=== PATIENT | female | born 1955 | race Hispanic/Latino ===

== ENCOUNTER 2016-09-27 15:31 | Emergency (ER) | payer MEDICAID, OTHER ==
[2016-09-27 15:32] VITALS: BMI 19.6
[2016-09-27 16:02] VITALS: RESP 16; O2SAT 97
[2016-09-27] MEDS ORDERED: Belladonna-Phenobarbital PO STA (16:46)
[2016-09-27] MEDS ORDERED: Aluminum Hydroxide/Magnesium Hydroxide Susp (30 mL) PO STA (16:46)
[2016-09-27] MEDS ORDERED: Lidocaine 2% Viscous 100 ml PO STA (16:46)
[2016-09-27] MEDS ORDERED: Sodium Chloride 0.9% 500 ML IV ONE ×2 (16:46→17:03)
--- NOTE | 2016-09-27 16:48 | C.PDOC ---
History Of Present Illness 61 y/o female with PMHx cervical cancer Dx 2013, alcoholism presents to the ED with complains of intermittent lower abdominal pain radiating to lower back the past couple days; 10/20. Pt also reports dizziness and constipation. Pt used to see Dr Thompson but states she moved locations and is now too far to travel to. Not currently on any medications. Pt admits to drinking more than usual. Denies fever, chills, vomiting, headache, diarrhea, chest pain, SOB or any other complaints. Time Seen by Provider: 09/27/16 16:16 Chief Complaint (Nursing): Back Pain History Per: Patient History/Exam Limitations: no limitations Onset/Duration Of Symptoms: Days, Intermittent Episodes Current Symptoms Are (Timing): Still Present Quality Of Discomfort: "Pain" Severity: Moderate Pain Scale Rating Of: 4 Associated Symptoms: None Recent travel outside of the [place]: No Past Medical History Reviewed: Historical Data, Nursing Documentation, Vital Signs Vital Signs: Last Vital Signs Temp 97.5 F L 09/27/16 16:00 Pulse 86 09/27/16 16:00 Resp 16 09/27/16 16:00 BP 121/71 09/27/16 16:00 Pulse Ox 97 09/27/16 16:54 - Medical History PMH: Anemia, Arthritis, Asthma, Bipolar Disorder, Depression, Diabetes (type II) , Gastritis, GERD, Hepatitis (C), HTN, Hypercholesterolemia, Malignancy ( Cervical/Ovarian CA), Osteoporosis - [facility] Procedures CERVICAL BIOPSY NEC (08/11/14) D & C NEC (08/11/14) LAPAROSCOPY (08/11/14) PACKED CELL TRANSFUSION (08/11/14) Family History: States: Unknown Family Hx, Diabetes, Hypertension - Social History Hx Tobacco Use: Yes Hx Alcohol Use: Yes (daily use of beer and rum) Hx Substance Use: Yes (cocaine) - Immunization History Hx Tetanus Toxoid Vaccination: No Hx Influenza Vaccination: No Hx Pneumococcal Vaccination: No Review Of Systems Except As Marked, All Systems Reviewed And Found Negative. Constitutional: Negative for: Fever, Chills Cardiovascular: Negative for: Chest Pain Respiratory: Negative for: Shortness of Breath Gastrointestinal: Positive for: Abdominal Pain (lower), Constipation. Negative for: Vomiting, Diarrhea Musculoskeletal: Positive for: Back Pain (low) Neurological: Negative for: Headache Physical Exam - Physical Exam Appears: Non-toxic, No Acute Distress, Other (alcohol on breath; conversational) Skin: Warm, Dry, No Rash Head: Atraumatic, Normacephalic Nose: Normal Neck: Normal ROM, Supple Chest: Symmetrical Cardiovascular: Rhythm Regular Respiratory: Normal Breath Sounds, No Rales, No Rhonchi, No Wheezing Gastrointestinal/Abdominal: Soft, No Tenderness Back: Normal Inspection, No CVA Tenderness, No Vertebral Tenderness, No Paraspinal Tenderness Extremity: Normal ROM Extremity: Bilateral: Atraumatic Neurological/Psych: Oriented x3 ED Course And Treatment - Laboratory Results Result Diagrams: 09/27/16 17:00 09/27/16 17:00 O2 Sat by Pulse Oximetry: 97 (on room air) Pulse Ox Interpretation: Normal Medical Decision Making Medical Decision Making: Plan: labs, maalox, , UA, XR abd, IV fluids Patient feeling much better, requesting immediate discharge . Wants to go home and eat. Patient's abnormal labs discussed with patient. She will follow in clinic. Disposition Counseled Patient/Family Regarding: Studies Performed, Diagnosis - Disposition Referrals: [facility] at [facility] [Outside] Disposition: HOSPITALIZED Disposition Time: 18:28 Condition: STABLE Additional Instructions: Follow up in clinic and with Dr. Thompson. Return to the ED with any further concerns. Instructions: Abdominal Pain (ED), High Fiber Diet (ED), Constipation (ED) Forms: General Discharge Instructions - POA Present On Arrival: None - Clinical Impression Clinical Impression: Abdominal pain in female, Acute constipation, Elevated lipase, Uterine cancer - Scribe Statement The provider has reviewed the documentation as recorded by the Petey Huggins Provider Attestation: All medical record entries made by the Petey were at my direction and personally dictated by me. I have reviewed the chart and agree that the record accurately reflects my personal performance of the history, physical exam, medical decision making, and the department course for this patient. I have also personally directed, reviewed, and agree with the discharge instructions and disposition.
[2016-09-27] MEDS ORDERED: Aluminum Hydroxide/Magnesium Hydroxide Susp (30 mL) ONE (17:03)
[2016-09-27] MEDS ORDERED: Belladonna-Phenobarbital ONE (17:03)
[2016-09-27 17:08] LABS: BASO % 0.9 % (0.0-2.0); EOS # 0.2 K/uL (0.0-0.7); EOS % 3.3 % (0.0-4.0); HEMATOCRIT 26.3 % (34.0-47.0); LYMPH # 1.4 K/uL (1.0-4.3); MEAN CELL VOLUME 92.2 fL (81.0-99.0); MEAN CORPUSCULAR HEMOGLOBIN 30.4 pg (27.0-31.0); MEAN PLATELET VOLUME 6.9 fL (7.2-11.7); MONO # 0.6 K/uL (0.0-0.8); RED CELL DISTRIBUTION WIDTH 17.8 % (11.5-14.5); WHITE BLOOD COUNT 4.6 K/uL (4.8-10.8)
[2016-09-27 17:22] LABS: CHLORIDE 107 mmol/L (98-107); SODIUM 145 mmol/L (132-148)
[2016-09-27 17:22] LABS: RBC URINE 1 /hpf (0-3); URINE BACTERIA RARE (<OCC); URINE BILIRUBIN NEGATIVE (NEGATIVE); URINE BLOOD NEGATIVE (NEGATIVE); URINE COLOR Yellow (YELLOW); URINE GLUCOSE (UA) NORMAL (Normal); URINE KETONE NEGATIVE (NEGATIVE); URINE LEUKOCYTE ESTERASE NEG Leu/uL (Negative); URINE PROTEIN NEGATIVE (NEGATIVE); URINE UROBILINOGEN NORMAL mg/dL (0.2-1.0); WBC URINE 2 /hpf (0-5)
[2016-09-27 17:24] LABS: GFR AFRICAN-AMERICAN > 60
[2016-09-27 17:25] LABS: ALB/GLOB RATIO 1.1 (1.0-2.1); ALKALINE PHOSPHATASE 85 U/L (38-126); ALT/SGPT 54 U/L (9-52); AST/SGOT 150 U/L (14-36); BILIRUBIN,TOTAL 0.3 mg/dL (0.2-1.3); BLOOD UREA NITROGEN 9 mg/dL (7-17); CARBON DIOXIDE 24 mmol/L (22-30); GLUCOSE,RANDOM 93 mg/dL (65-105)
[2016-09-27 17:26] LABS: CALCIUM 8.6 mg/dl (8.6-10.4)
[2016-09-27] MEDS ORDERED: Magnesium Citrate Oral SOL (300 ml) PO ONE (17:44)
[2016-09-27] MEDS ORDERED: Magnesium Citrate Oral SOL (300 ml) ONE (18:54)
[2016-09-27 19:11] VITALS: BP 105/77; PULSE 75; TEMP 98.2
--- NOTE | 2016-09-28 15:31 | RAD ---
HISTORY: abd pain COMPARISON: No prior. FINDINGS: BOWEL: There is moderate amount of stool within the cecum and at ascending as well as proximal transverse colon suggesting mild constipation. No evidence of acute mechanical bowel obstruction. The diaphragmatic surfaces. BONES: Mild multilevel degenerative spondylosis of the lower thoracic and lumbar spine. . OTHER FINDINGS: None. IMPRESSION: Nonobstructive bowel gas pattern. Findings suggest mild constipation.
== END 2016-09-27 19:11 | disposition home or self-care (01) ==
LOC: C.ER 15:31
DX: K59.00 Constipation, unspecified (principal); R10.30 Lower abdominal pain, unspecified; R74.8 Abnormal levels of other serum enzymes; C55 Malignant neoplasm of uterus, part unspecified

== ENCOUNTER 2016-10-31 02:42 | Emergency (ER) | payer MEDICAID ==
[2016-10-31 02:44] VITALS: BMI 19.6
[2016-10-31 03:06] VITALS: RESP 20
--- NOTE | 2016-10-31 03:12 | C.PDOC ---
History Of Present Illness A 61 year old female presents to the emergency room with complaints of vaginal bleeding that started tonight. Patient has a history of Anemia, Ovarian CA, and Cervical CA. Patient reports that she hasn't followed up with anyone. Patient states that she was wiping and saw blood along with 2 clots. Patient says she hasn't had any episodes of bleeding since. Patient notes that she had some vaginal bleeding last week. Patient also notes a lower abdominal cramping sensation and 4 episodes of vomiting earlier this morning. Patient denies any fever, chills, headaches, dizziness, lightheadedness, syncope, any urinary symptoms, or any other complaints. Time Seen by Provider: 10/31/16 02:50 Chief Complaint (Nursing): Female Genitourinary History Per: Patient History/Exam Limitations: no limitations Onset/Duration Of Symptoms: Hrs Current Symptoms Are (Timing): Still Present Severity: Mild Quality Of Discomfort: Cramping, "Pain" Associated Symptoms: Vomiting. denies: Fever, Chills, Urinary Symptoms Alleviating Factors: None Recent travel outside of the [place]: No Abnormal Vaginal Bleeding: Yes Past Medical History Reviewed: Historical Data, Nursing Documentation, Vital Signs Vital Signs: Last Vital Signs Temp 98.0 F 10/31/16 05:52 Pulse 81 10/31/16 05:52 Resp 20 10/31/16 05:52 BP 150/89 10/31/16 05:52 Pulse Ox 99 10/31/16 05:52 - Medical History PMH: Anemia, Arthritis, Asthma, Bipolar Disorder, Depression, Diabetes (type II) , Gastritis, GERD, Hepatitis (C), HTN, Hypercholesterolemia, Malignancy ( Cervical/Ovarian CA), Osteoporosis Denies: HIV, Seizures, Sexually Transmitted Disease - [facility] Procedures CERVICAL BIOPSY NEC (08/11/14) D & C NEC (08/11/14) LAPAROSCOPY (08/11/14) PACKED CELL TRANSFUSION (08/11/14) Family History: States: Unknown Family Hx, Diabetes, Hypertension - Social History Hx Tobacco Use: Yes Hx Alcohol Use: Yes (daily use of beer and rum) Hx Substance Use: Yes (cocaine) - Immunization History Hx Tetanus Toxoid Vaccination: No Hx Influenza Vaccination: No Hx Pneumococcal Vaccination: No Review Of Systems Except As Marked, All Systems Reviewed And Found Negative. Constitutional: Negative for: Fever, Chills Cardiovascular: Negative for: Other (Syncope) Gastrointestinal: Positive for: Vomiting, Abdominal Pain (Lower abdominal cramping), Diarrhea (Chronic Diarrhea) Genitourinary: Positive for: Vaginal Bleeding. Negative for: Dysuria, Frequency , Incontinence, Hematuria Neurological: Negative for: Headache, Dizziness, Other (Lightheadedness) Physical Exam - Physical Exam Appears: Unkempt, Other (ETOH on breath) Skin: Normal Color, Warm, Dry Head: Atraumatic, Normacephalic Eye(s): bilateral: Normal Inspection, PERRL, EOMI Oral Mucosa: Moist Neck: Normal ROM, No Midline Cervical Tenderness, No Paracervical Tenderness, Supple Cardiovascular: Rhythm Regular Respiratory: Normal Breath Sounds, No Rales, No Rhonchi, No Wheezing Gastrointestinal/Abdominal: Soft, Tenderness (Mild lower abdominal tenderness), No Guarding, No Rebound Pelvic: No Vaginal Bleeding (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 CLINICAL HISTORY: 61 years old, female; Signs and symptoms; Other: Vag bleeding; Additional info: Abd pain, vag. bleeding. TECHNIQUE: Real-time transabdominal pelvic ultrasound (complete) with image documentation. COMPARISON: No relevant prior studies available. FINDINGS: Uterus/cervix: On transabdominal study, there was limited visualization related to poor distention of. the bladder. The uterus measured 3.3 x 4.7 x 2.2 cm, with distortion of the lower uterine segment by. an echogenic finding of uncertain significance. The endometrium could not be evaluated on this. probe. No myometrial mass. Right ovary: The ovaries were not seen. Left ovary: The ovaries were not seen.. Free fluid: No free fluid. Bladder: See above. IMPRESSION: Limited transabdominal evaluation showing a small uterus with echogenic findings at the uterine. cervix, noting history of cervical carcinoma. EXAM: US Pelvis, Transvaginal. CLINICAL HISTORY: 61 years old, female; Signs and symptoms; Other: Vag bleeding; Additional info: Abd pain, vag. bleeding. TECHNIQUE: Real-time transvaginal pelvic ultrasound (complete ) with image documentation. Transvaginal. imaging was used for better evaluation of the endometrium and adnexa. EXAM DATE/TIME: Exam ordered 2016 3:15 AM. COMPARISON: CT - ABD PELVIS PO IV CONTRAST 06/12/2015 4:29:26 PM. FINDINGS: Uterus/cervix: Additional history is provided of prior cervical carcinoma with radiation and. chemotherapy in the past. The uterus measures 4.7 x 2.2 x 3.3 cm. The endometrium is poorly. delineated. There is an echogenic finding in the expected location of the cervix which may be related. to previous treatment, clarification of the nature of this finding is recommended noting history of. cervical carcinoma. Magnetic resonance imaging is ideal for characterization if the patient can. tolerate. No myometrial mass. Right ovary: The ovaries were not seen. Left ovary: The ovaries were not seen. Free fluid: No free fluid. Bladder: Empty bladder which cannot be evaluated with this probe. IMPRESSION: Abnormal uterus which may reflect posttreatment changes in this patient with a history of treated. cervical carcinoma. Echogenic area at the expected location of the uterine cervix, this could reflect. posttreatment change but is not fully characterized. Clarification preferably with magnetic resonance. imaging if the patient can tolerate is suggested. Medical Decision Making Medical Decision Making: Impression: A 61 year old female with vaginal bleeding, lower abdominal cramping , and 4 episodes of vomiting within the past day. Mild lower abdominal tenderness and no vaginal bleeding on PE. Plan: -- Labs -- Toradol & Zofran -- Pelvic Ultrasound Progress Notes: Labs reviewed, Hgb 8.9 / Hct 28.3, patient's last labs on 09/27/16 shows Hgb 8.7 / Hct 26.3. US pelvis: shows no acute findings. On re-evaluation, patient is resting in bed comfortably in no acute distress, reports no other complaints at this time, denies any chest pain, SOB, nausea or abdominal pain. On exam, remains awake, alert and oriented x3, abdomen remains soft and nontender. Patient able to stand and ambulate with a normal gait. Diagnostic results discussed with the patient. Based on history and exam, plan will be for outpatient follow up. Advised to follow up with pmd or the clinic in 2 days for re-evaluation. Return to the ER at any time a for any new or worsening symptoms. Disposition - Disposition Referrals: [facility] at [facility] [Outside] Disposition: HOME/ ROUTINE Disposition Time: 05:36 Condition: STABLE Additional Instructions: Follow up with pmd or the clinic in 2 days for re-evaluation. Return to the ER at any time a for any new or worsening symptoms. Instructions: Abdominal Pain (ED), Dysfunctional Uterine Bleeding (ED) Print Language: PERUVIAN - Clinical Impression Clinical Impression: Abdominal pain, DUB (dysfunctional uterine bleeding) - PA / COGNOS / Resident Statement MD/DO has reviewed & agrees with the documentation as recorded. - Scribe Statement The provider has reviewed the documentation as recorded by the Petey Ybarra Provider Scribe Attestation: All medical record entries made by the Petey were at my direction and personally dictated by me. I have reviewed the chart and agree that the record accurately reflects my personal performance of the history, physical exam, medical decision making, and the department course for this patient. I have also personally directed, reviewed, and agree with the discharge instructions and disposition.
[2016-10-31] MEDS ORDERED: Sodium Chloride 0.9% 1,000 ML IV ONE (03:15)
[2016-10-31] MEDS ORDERED: Sodium Chloride 0.9% 1,000 ML ONE (03:32)
[2016-10-31 03:33] LABS: BASO % 0.9 % (0.0-2.0); EOS # 0.2 K/uL (0.0-0.7); EOS % 5.2 % (0.0-4.0); HEMATOCRIT 28.3 % (34.0-47.0); LYMPH # 1.4 K/uL (1.0-4.3); LYMPH % 31.5 % (20.0-40.0); MEAN CELL VOLUME 89.6 fL (81.0-99.0); MEAN CORPUSCULAR HEMOGLOBIN 28.3 pg (27.0-31.0); MEAN CORPUSCULAR HGB CONC 31.5 g/dL (33.0-37.0); MEAN PLATELET VOLUME 7.1 fL (7.2-11.7); MONO # 0.6 K/uL (0.0-0.8); MONO % 13.4 % (0.0-10.0); RED CELL DISTRIBUTION WIDTH 17.7 % (11.5-14.5); WHITE BLOOD COUNT 4.6 K/uL (4.8-10.8)
[2016-10-31 03:40] LABS: CHLORIDE 103 mmol/L (98-107)
[2016-10-31 03:41] LABS: POTASSIUM 3.9 mmol/L (3.6-5.2); SODIUM 140 mmol/L (132-148)
[2016-10-31 03:43] LABS: AST/SGOT 124 U/L (14-36); BILIRUBIN,TOTAL 0.3 mg/dL (0.2-1.3); CARBON DIOXIDE 20 mmol/L (22-30); GFR AFRICAN-AMERICAN > 60
[2016-10-31 03:44] LABS: ALB/GLOB RATIO 1.4 (1.0-2.1); ALKALINE PHOSPHATASE 83 U/L (38-126); ALT/SGPT 48 U/L (9-52); BLOOD UREA NITROGEN 10 mg/dL (7-17); GLUCOSE,RANDOM 95 mg/dL (65-105); TOTAL PROTEIN 7.2 g/dL (6.3-8.3)
--- NOTE | 2016-10-31 04:54 | US ---
EXAM: US Pelvis Complete, Transabdominal CLINICAL HISTORY: 61 years old, female; Signs and symptoms; Other: Vag bleeding; Additional info: Abd pain, vag bleeding TECHNIQUE: Real-time transabdominal pelvic ultrasound (complete) with image documentation. COMPARISON: No relevant prior studies available. FINDINGS: Uterus/cervix: On transabdominal study, there was limited visualization related to poor distention of the bladder. The uterus measured 3.3 x 4.7 x 2.2 cm, with distortion of the lower uterine segment by an echogenic finding of uncertain significance. The endometrium could not be evaluated on this probe. No myometrial mass. Right ovary: The ovaries were not seen. Left ovary: The ovaries were not seen.. Free fluid: No free fluid. Bladder: See above. IMPRESSION: Limited transabdominal evaluation showing a small uterus with echogenic findings at the uterine cervix, noting history of cervical carcinoma EXAM: US Pelvis, Transvaginal CLINICAL HISTORY: 61 years old, female; Signs and symptoms; Other: Vag bleeding; Additional info: Abd pain, vag bleeding TECHNIQUE: Real-time transvaginal pelvic ultrasound (complete) with image documentation. Transvaginal imaging was used for better evaluation of the endometrium and adnexa. EXAM DATE/TIME: Exam ordered 10/31/2016 3:15 AM COMPARISON: CT - ABD PELVIS PO IV CONTRAST 06/12/2015 4:29:26 PM FINDINGS: Uterus/cervix: Additional history is provided of prior cervical carcinoma with radiation and chemotherapy in the past. The uterus measures 4.7 x 2.2 x 3.3 cm. The endometrium is poorly delineated. There is an echogenic finding in the expected location of the cervix which may be related to previous treatment, clarification of the nature of this finding is recommended noting history of cervical carcinoma. Magnetic resonance imaging is ideal for characterization if the patient can tolerate. No myometrial mass. Right ovary: The ovaries were not seen. Left ovary: The ovaries were not seen. Free fluid: No free fluid. Bladder: Empty bladder which cannot be evaluated with this probe. IMPRESSION: Abnormal uterus which may reflect posttreatment changes in this patient with a history of treated cervical carcinoma. Echogenic area at the expected location of the uterine cervix, this could reflect posttreatment change but is not fully characterized. Clarification preferably with magnetic resonance imaging if the patient can tolerate is suggested.
[2016-10-31 05:54] VITALS: BP 150/89; PULSE 81; TEMP 98
[2016-10-31 05:56] LABS: RBC URINE 1 /hpf (0-3); URINE BILIRUBIN NEGATIVE (NEGATIVE); URINE BLOOD 1+ (NEGATIVE); URINE COLOR Straw (YELLOW); URINE GLUCOSE (UA) NORMAL (Normal); URINE KETONE NEGATIVE (NEGATIVE); URINE LEUKOCYTE ESTERASE NEG Leu/uL (Negative); URINE PROTEIN NEGATIVE (NEGATIVE); URINE UROBILINOGEN NORMAL mg/dL (0.2-1.0); WBC URINE 1 /hpf (0-5)
[2016-10-31 06:36] VITALS: O2SAT 97
== END 2016-10-31 06:13 | disposition home or self-care (01) ==
LOC: C.ER 02:42
DX: N93.8 Other specified abnormal uterine and vaginal bleeding (principal); R10.30 Lower abdominal pain, unspecified
CPT/HCPCS: 76830; 76856; 80053; 81001; 85025; 87086; 96361; 96374; 96375; 99283; J1885; J2405; J7040

== ENCOUNTER 2017-10-27 21:17 | Emergency (ER) | payer MEDICAID ==
[2017-10-27 21:17] VITALS: BMI 19.6
[2017-10-27 21:43] VITALS: BP 163/104; PULSE 95; RESP 18; TEMP 97.9; O2SAT 96
[2017-10-27 22:47] LABS: URINE BILIRUBIN NEGATIVE (NEGATIVE); URINE BLOOD NEGATIVE (NEGATIVE); URINE CLARITY Clear (Clear); URINE COLOR Colorless (YELLOW); URINE GLUCOSE (UA) NORMAL (Normal); URINE LEUKOCYTE ESTERASE NEG Leu/uL (Negative); URINE PROTEIN NEGATIVE (NEGATIVE); URINE UROBILINOGEN NORMAL mg/dL (0.2-1.0)
--- NOTE | 2017-10-27 23:44 | C.PDOC ---
Time Seen by Provider: 10/27/17 23:34 Chief Complaint (Nursing): Female Genitourinary Past Medical History Vital Signs: Last Vital Signs Temp 97.9 F 10/27/17 21:38 Pulse 95 H 10/27/17 21:38 Resp 18 10/27/17 21:38 BP 163/104 H 10/27/17 21:38 Pulse Ox 96 10/27/17 21:38 - Medical History PMH: Anemia, Arthritis, Asthma, Bipolar Disorder, Depression, Diabetes (type II) , Gastritis, GERD, Hepatitis (C), HTN, Hypercholesterolemia, Malignancy ( Cervical/Ovarian CA), Osteoporosis Denies: HIV, Chronic Kidney Disease, Seizures, Sexually Transmitted Disease - [facility] Procedures CERVICAL BIOPSY NEC (08/11/14) D & C NEC (08/11/14) LAPAROSCOPY (08/11/14) PACKED CELL TRANSFUSION (08/11/14) Family History: States: Unknown Family Hx, Diabetes, Hypertension - Social History Hx Tobacco Use: Yes Hx Alcohol Use: Yes (daily use of beer and rum) Hx Substance Use: Yes (cocaine) - Immunization History Hx Tetanus Toxoid Vaccination: No Hx Influenza Vaccination: No Hx Pneumococcal Vaccination: No ED Course And Treatment - Laboratory Results Lab Interpretation: Normal (UA) O2 Sat by Pulse Oximetry: 96 Medical Decision Making Medical Decision Making: LWOB, chronic uterine issues, NO UTI Disposition Doctor Will See Patient In The: Office - Disposition Disposition: ELOPEMENT - ER ONLY Disposition Time: 23:44 Condition: GOOD - Clinical Impression Clinical Impression: Dysuria
== END 2017-10-27 23:34 | disposition left against medical advice (07) ==
LOC: C.ER 21:17
DX: R30.0 Dysuria (principal)

== ENCOUNTER 2018-02-02 10:55 | Emergency (ER) | payer MEDICAID ==
[2018-02-02 10:55] VITALS: BMI 19.6
[2018-02-02] MEDS ORDERED: Sodium Chloride 0.9% 1,000 ML IV ONE (11:36)
--- NOTE | 2018-02-02 11:40 | C.PDOC ---
History Of Present Illness 62-year-old female presents to the emergency department complaining of lower abdominal pain that is associated with nausea, non-bloody/non-bilious vomiting and watery/non-bloody diarrhea for the past three days. Symptoms worsened today , associated with a subjective fever, prompting ER visit. Patient has a Hx of cervical CA and is s/p chemotherapy last year. She was diagnosed in 2017 and states she is currently in remission. She denies dysuria, vaginal bleeding/ discharge, chest pain, SOB, cough, or any other associated symptoms. Time Seen by Provider: 02/02/18 11:16 Chief Complaint (Nursing): Abdominal Pain History Per: Patient History/Exam Limitations: no limitations Current Symptoms Are (Timing): Still Present Severity: Moderate Quality Of Discomfort: "Pain" Associated Symptoms: Nausea, Vomiting, Diarrhea. denies: Urinary Symptoms Abnormal Vaginal Bleeding: No Past Medical History Reviewed: Historical Data, Nursing Documentation, Vital Signs Vital Signs: Last Vital Signs Temp 98.2 F 02/02/18 14:47 Pulse 83 02/02/18 14:47 Resp 18 02/02/18 14:47 BP 124/83 02/02/18 14:47 Pulse Ox 96 02/02/18 18:07 - Medical History PMH: Anemia, Arthritis, Asthma, Bipolar Disorder, Depression, Diabetes (type II) , Gastritis, GERD, Hepatitis (C), HTN, Hypercholesterolemia, Malignancy ( Cervical/Ovarian CA), Osteoporosis - [facility] Procedures CERVICAL BIOPSY NEC (08/11/14) D & C NEC (08/11/14) LAPAROSCOPY (08/11/14) PACKED CELL TRANSFUSION (08/11/14) Family History: States: Diabetes, Hypertension - Social History Hx Tobacco Use: Yes Hx Alcohol Use: Yes (daily use of beer and rum) Hx Substance Use: Yes (cocaine) - Immunization History Hx Tetanus Toxoid Vaccination: No Hx Influenza Vaccination: No Hx Pneumococcal Vaccination: No Review Of Systems Constitutional: Negative for: Fever, Chills Cardiovascular: Negative for: Chest Pain Respiratory: Negative for: Shortness of Breath Gastrointestinal: Positive for: Nausea, Vomiting, Abdominal Pain, Diarrhea Genitourinary: Negative for: Dysuria, Hematuria Skin: Negative for: Rash Physical Exam - Physical Exam Appears: Well, Non-toxic, No Acute Distress Skin: Normal Color, Warm, Dry, No Rash Head: Normacephalic Eye(s): bilateral: Normal Inspection Oral Mucosa: Moist Cardiovascular: Rhythm Regular Respiratory: Normal Breath Sounds, No Rales, No Rhonchi, No Wheezing Gastrointestinal/Abdominal: Bowel Sounds, Soft, Tenderness (suprapubic, mild TTP , (-) McBurney's ), No Guarding, No Rebound Back: Normal Inspection, No CVA Tenderness Extremity: Normal ROM, No Pedal Edema, No Calf Tenderness Neurological/Psych: Oriented x3 ED Course And Treatment - Laboratory Results Result Diagrams: 02/02/18 11:46 02/02/18 11:46 O2 Sat by Pulse Oximetry: 96 (RA) Pulse Ox Interpretation: Normal - CT Scan/US transvaginal US Other Rad Studies (CT/US): Read By Radiologist, Radiology Report Reviewed CT/US Interpretation: Accession No. : [id number]. Patient Name / ID : KARINA LUCIO / [id number]. Exam Date : 02/02/2018 13:20:18 ( Approved ). Study Comment : Sex / Age : F / [id number]. Creator : Arlyn [address]. Dictator : Arlyn [employer]. Appeals Board Referee : Supervisor Press Room : Arlyn [address]. Approver2 : Report Date : 02/02/2018 14:11:16. My Comment : . Date of service: 02/02/2018. PROCEDURE: HISTORY: H/O CERVICAL CA, PELVIC PAIN. [age] year old female. -postmenopausal. COMPARISON: Pelvic and transvaginal ultrasound 10/31/2016. TECHNIQUE: Pelvic and transvaginal ultrasound. FINDINGS: Uterus is anteverted measures 5.3 x 2.6 x 3.1 cm. No upper uterine masses noted. There is prominent echogenicity at the cervical level measuring 1.0 x 1.1 x 1.7 cm -possibly related to patient's prior treatment - history of cervical cancer noted. This hyper echogenic appearance is similar-appearing with the 10/31/2016 images. It is unknown if the patient has had a outside MRI pelvis/ uterus additional imaging subsequent to the prior pelvic transvaginal ultrasound report. Some of this at hyperechogenicities coalescence a represent the finding concomitant calcifications and or other post treatment related changes are some considerations. Similar appearing cervical neoplastic change is not excluded ; appearance similar. Findings are indeterminate as before. Endometrium 2.3 mm within normal limits. Neither ovary visualized. Small amount of free fluid in the cul-de-sac noted. IMPRESSION: Similar appearing cervical anterior mostly echogenic area - post treatment changes in this patient with a history of cervical cancer is 1 consider. Other considerations are as referenced above. Clinical correlation in terms of prior treatments and any prior outside imaging studies is recommended. Neither ovary visualized. Small amount of free fluid in the cul-de-sac noted. Normal-appearing postmenopausal endometrium. No intra uterine cavity fluid seen Progress Note: Blood work, EKG, UA, transvaginal US ordered and reviewed. Patient given IV NS bolus, IV toradol. Reevaluation Time: 14:50 Reassessment Condition: Improved (On reassessment, patient is resting comfortably, asking to be discharged home. She states her symptoms have resolved. On exam, abdomen is soft and nontender. Patient given Rxs for Naprosyn, Bentyl and Zofran, and was instructed to follow up with PMD/clinic in 1-2 days. She understands she should return to ED if symptoms worsen.) Disposition Counseled Patient/Family Regarding: Studies Performed, Diagnosis, Need For Followup, Rx Given - Disposition Referrals: [facility] at [facility] [Outside] Disposition: HOME/ ROUTINE Disposition Time: 14:50 Condition: STABLE Additional Instructions: FOLLOW UP WITH YOUR DOCTOR/CLINIC IN 1-2 DAYS USE MEDICATIONS NEEDED RETURN TO ER IF SYMPTOMS WORSEN Prescriptions: Dicyclomine [Bentyl] 20 mg PO Q6 PRN #12 tab PRN Reason: ABDOMINAL CRAMPING Naproxen 375 mg PO BID PRN #20 tablet PRN Reason: pain Ondansetron [Zofran Odt] 4 mg PO Q8 PRN #10 odt PRN Reason: Nausea/Vomiting Instructions: Nausea and Vomiting, Adult (DC) Forms: [employer] (Botswanan) Print Language: SUDANESE - Clinical Impression Clinical Impression: Nausea & vomiting, Elevated lipase, Diarrhea - Scribe Statement The provider has reviewed the documentation as recorded by the Scribe (Delma Jauregui) All medical record entries made by the Scribe were at my direction and personally dictated by me. I have reviewed the chart and agree that the record accurately reflects my personal performance of the history, physical exam, medical decision making, and the department course for this patient. I have also personally directed, reviewed, and agree with the discharge instructions and disposition.
[2018-02-02] MEDS ORDERED: Sodium Chloride 0.9% 1,000 ML ONE (11:50)
[2018-02-02 11:54] LABS: BASO % 0.5 % (0.0-2.0); EOS % 0.6 % (0.0-4.0); HEMOGLOBIN 10.6 g/dL (11.0-16.0); LYMPH # 0.6 K/uL (1.0-4.3); LYMPH % 8.6 % (20.0-40.0); MEAN CORPUSCULAR HEMOGLOBIN 30.4 pg (27.0-31.0); MEAN CORPUSCULAR HGB CONC 33.7 g/dL (33.0-37.0); MONO # 1.4 K/uL (0.0-0.8); MONO % 18.5 % (0.0-10.0); NEUT # 5.4 K/uL (1.8-7.0); NEUT % 71.8 % (50.0-75.0); RED CELL DISTRIBUTION WIDTH 22.2 % (11.5-14.5)
[2018-02-02 11:56] LABS: PLATELET COUNT 270 K/uL (130-400); WHITE BLOOD COUNT 7.6 K/uL (4.8-10.8)
[2018-02-02 12:00] LABS: URINE BILIRUBIN NEGATIVE (NEGATIVE); URINE BLOOD NEGATIVE (NEGATIVE); URINE CLARITY Hazy (Clear); URINE COLOR Amber (YELLOW); URINE GLUCOSE (UA) NORMAL (Normal); URINE LEUKOCYTE ESTERASE 1+ Leu/uL (Negative); URINE PROTEIN NEGATIVE (NEGATIVE)
[2018-02-02 12:03] LABS: SQUAMOUS EPITHIAL 20 /hpf (0-5); URINE BACTERIA FEW (<OCC)
[2018-02-02 12:04] LABS: ALB/GLOB RATIO 1.2 (1.0-2.1); ALBUMIN 4.1 g/dL (3.5-5.0); ALT/SGPT 43 U/L (9-52); AST/SGOT 86 U/L (14-36); BLOOD UREA NITROGEN 15 mg/dL (7-17); CALCIUM 10.1 mg/dl (8.6-10.4); GFR AFRICAN-AMERICAN > 60; GFR NON-AFRICAN AMERICAN > 60; LIPASE 348 U/L (23-300)
[2018-02-02 12:20] LABS: ANISOCYTOSIS MODERATE; BANDS 7 % (0-2); EOSINOPHIL 1 % (0-4); LYMPHOCYTE 10 % (20-40); MONOCYTE 18 % (0-10); NEUTROPHIL 64 % (50-75); PLATELET ESTIMATE NORMAL (NORMAL); TOTAL CELLS COUNTED 100
--- NOTE | 2018-02-02 14:13 | US ---
Date of service: 02/02/2018 PROCEDURE: HISTORY: H/O CERVICAL CA, PELVIC PAIN. [age] year old female. -postmenopausal COMPARISON: Pelvic and transvaginal ultrasound 10/31/2016 TECHNIQUE: Pelvic and transvaginal ultrasound FINDINGS: Uterus is anteverted measures 5.3 x 2.6 x 3.1 cm. No upper uterine masses noted. There is prominent echogenicity at the cervical level measuring 1.0 x 1.1 x 1.7 cm -possibly related to patient's prior treatment - history of cervical cancer noted. This hyper echogenic appearance is similar-appearing with the 10/31/2016 images. It is unknown if the patient has had a outside MRI pelvis/ uterus additional imaging subsequent to the prior pelvic transvaginal ultrasound report. Some of this at hyperechogenicities coalescence a represent the finding concomitant calcifications and or other post treatment related changes are some considerations. Similar appearing cervical neoplastic change is not excluded ; appearance similar Findings are indeterminate as before Endometrium 2.3 mm within normal limits. Neither ovary visualized. Small amount of free fluid in the cul-de-sac noted IMPRESSION: Similar appearing cervical anterior mostly echogenic area - post treatment changes in this patient with a history of cervical cancer is 1 consider. Other considerations are as referenced above. Clinical correlation in terms of prior treatments and any prior outside imaging studies is recommended Neither ovary visualized. Small amount of free fluid in the cul-de-sac noted Normal-appearing postmenopausal endometrium. No intra uterine cavity fluid seen
[2018-02-02 14:47] VITALS: BP 124/83; PULSE 83; RESP 18; TEMP 98.2
[2018-02-02 14:54] VITALS: O2SAT 96
--- NOTE | 2018-02-02 20:43 | CARD ---
APPROVED REPORT Date of service: 02/02/2018 EKG Measurement Heart [id number] CO [id number] <Conclusion> Sinus rhythm with short CO Otherwise normal ECG
== END 2018-02-02 15:12 | disposition home or self-care (01) ==
LOC: C.ER 10:55
DX: R11.2 Nausea with vomiting, unspecified (principal); R74.8 Abnormal levels of other serum enzymes; R19.7 Diarrhea, unspecified
CPT/HCPCS: 76830; 76856; 80053; 81001; 83690; 85025; 93005; 96361; 96374; 99285; J1885; J7030

== ENCOUNTER 2018-07-22 12:05 | Emergency (ER) | payer MEDICAID ==
[2018-07-22 12:17] VITALS: BMI 36.3
--- NOTE | 2018-07-22 13:15 | C.PDOC ---
History Of Present Illness 63 year old female presents to the emergency department with complaints of right knee pain since yesterday. Patient reports getting dizzy and falling, admits to drinking alcohol. Since then, she reports pain and swelling to the right knee. Patient denies taking anything for the pain and states that she has been able to ambulate. She denies numbness and weakness to the distal knee, and is unsure of her last tetanus vaccination. Patient admits to drinking, smoking, and occasional cocaine use. PMD: Dr. Ramya Wiley - [facility] Time Seen by Provider: 07/22/18 13:03 Chief Complaint (Nursing): Trauma History Per: Patient History/Exam Limitations: no limitations Onset/Duration Of Symptoms: Days (1) Injury Occurred (Timing): Days Ago: (1) Location Of Injury: Right: Knee, Anterior: Knee Associated Symptoms: Dizziness Past Medical History Reviewed: Historical Data, Nursing Documentation, Vital Signs Vital Signs: Last Vital Signs Temp 97.8 F 07/22/18 12:17 Pulse 97 H 07/22/18 12:17 Resp 18 07/22/18 12:17 BP 159/101 H 07/22/18 12:17 Pulse Ox 98 07/22/18 12:17 - Medical History PMH: Anemia, Arthritis, Asthma, Bipolar Disorder, Depression, Diabetes (type II), Gastritis, GERD, Hepatitis (C), HTN, Hypercholesterolemia, Malignancy (Cervical/Ovarian CA), Osteoporosis Denies: HIV, Chronic Kidney Disease, Seizures, Sexually Transmitted Disease Surgical History: No Surg Hx - [facility] Procedures CERVICAL BIOPSY NEC (08/11/14) D & C NEC (08/11/14) LAPAROSCOPY (08/11/14) PACKED CELL TRANSFUSION (08/11/14) Family History: States: Unknown Family Hx, Diabetes, Hypertension - Social History Hx Tobacco Use: Yes Hx Alcohol Use: Yes (daily use of beer and rum) Hx Substance Use: Yes (cocaine) - Immunization History Hx Tetanus Toxoid Vaccination: No Hx Influenza Vaccination: No Hx Pneumococcal Vaccination: No Review Of Systems Except As Marked, All Systems Reviewed And Found Negative. Musculoskeletal: Positive for: Leg Pain (right knee) Neurological: Positive for: Dizziness Physical Exam - Physical Exam Appears: Non-toxic, No Acute Distress Head: Atraumatic, Normacephalic Eye(s): bilateral: PERRL, EOMI Back: Normal Inspection, No Decreased ROM Extremity: Tenderness (tenderness to palpation to the right patella, NO ballotement. ), Swelling (diffuse swelling to the right knee, anterior to the patella. ), Other (superficial abrasion to the anterior right knee. Passive flexion of the right knee. NO laxity.) Neurological/Psych: Oriented x3, Normal Speech, Normal Cognition, Normal Motor (5/5 strength in flexion and extension of the right knee. ), Normal Sensation ED Course And Treatment - Laboratory Results Result Diagrams: 07/22/18 13:30 07/22/18 13:30 O2 Sat by Pulse Oximetry: 98 (RA) Pulse Ox Interpretation: Normal Medical Decision Making Medical Decision Making: Plan: Chemistry CBC XR Knee Right 3 Views Adacel 0.5ml IM Motrin 600mg PO Impression: Right knee injury. Differential Diagnosis: Fracture of right knee. Disposition - Disposition Referrals: Ramya Wiley MD [Medical Doctor] - Disposition: HOME/ ROUTINE Disposition Time: 14:34 Condition: STABLE Instructions: Contusion (DC), Knee Pain (DC) - Clinical Impression Clinical Impression: Knee contusion - Scribe Statement The provider has reviewed the documentation as recorded by the Scribe (Kendall Leonard) Provider Attestation: All medical record entries made by the Scribe were at my direction and personally dictated by me. I have reviewed the chart and agree that the record accurately reflects my personal performance of the history, physical exam, medical decision making, and the department course for this patient. I have also personally directed, reviewed, and agree with the discharge instructions and disposition.
[2018-07-22] MEDS ORDERED: Tdap Vaccine 0.5 ml Vial (10-64 yrs) IM ONE ×2 (13:24→13:49)
[2018-07-22 13:42] LABS: BASO # 0.1 K/uL (0.0-0.2); BASO % 0.9 % (0.0-2.0); EOS # 0.1 K/uL (0.0-0.7); EOS % 2.4 % (0.0-4.0); HEMOGLOBIN 8.8 g/dL (11.0-16.0); LYMPH # 1.4 K/uL (1.0-4.3); LYMPH % 23.4 % (20.0-40.0); MEAN CELL VOLUME 90.8 fL (81.0-99.0); MEAN CORPUSCULAR HEMOGLOBIN 29.2 pg (27.0-31.0); MEAN CORPUSCULAR HGB CONC 32.2 g/dL (33.0-37.0); MEAN PLATELET VOLUME 7.8 fL (7.2-11.7); MONO # 0.8 K/uL (0.0-0.8); MONO % 13.1 % (0.0-10.0); NEUT # 3.6 K/uL (1.8-7.0); NEUT % 60.2 % (50.0-75.0); RED CELL DISTRIBUTION WIDTH 18.6 % (11.5-14.5); WHITE BLOOD COUNT 5.9 K/uL (4.8-10.8)
[2018-07-22 14:04] LABS: ALB/GLOB RATIO 1.4 (1.0-2.1); ALBUMIN 4.5 g/dL (3.5-5.0); ALT/SGPT 42 U/L (9-52); AST/SGOT 108 U/L (14-36); BLOOD UREA NITROGEN 9 mg/dL (7-17); CALCIUM 9.6 mg/dl (8.6-10.4); GFR NON-AFRICAN AMERICAN > 60
[2018-07-22 15:12] VITALS: BP 148/86; PULSE 84; RESP 17; TEMP 98.6
--- NOTE | 2018-07-22 16:04 | RAD ---
PROCEDURE: Right Knee Radiographs. HISTORY: knee RIGHT pain injury COMPARISON: None available. FINDINGS: BONES: Osseous demineralization. No acute displaced fracture. Suprapatellar enthesophyte. JOINTS: No dislocation. JOINT EFFUSION: No significant joint effusion. OTHER FINDINGS: None. IMPRESSION: Osseous demineralization. No acute displaced fracture, dislocation, or significant joint effusion identified. If symptoms persist, or if there is continued clinical concern, x-ray follow-up in 7-10 days should be considered.
[2018-07-22 17:48] VITALS: O2SAT 98
== END 2018-07-22 15:14 | disposition home or self-care (01) ==
LOC: C.ER 12:05
DX: S80.01XA Contusion of right knee, initial encounter (principal); W18.30XA Fall on same level, unspecified, initial encounter

== ENCOUNTER 2018-11-24 14:28 | Emergency (ER) | payer MEDICAID ==
[2018-11-24 14:39] VITALS: BMI 17.9
[2018-11-24 14:48] VITALS: RESP 20
[2018-11-24] MEDS ORDERED: Bacitracin 500 Units/gm Oint Foilpak UD TOP STA (15:16)
[2018-11-24] MEDS ORDERED: Tdap Vaccine 0.5 ml Vial (10-64 yrs) IM ONE (15:17)
[2018-11-24] MEDS ORDERED: Tetanus/Diphtheria Toxoids 0.5 ml Syringe IM ONE (15:36)
--- NOTE | 2018-11-24 17:07 | RAD ---
Date of service: 11/24/2018 PROCEDURE: Left Knee Radiographs. HISTORY: Pain. COMPARISON: None. TECHNIQUE: Three views obtained. FINDINGS: BONES: Normal. No fracture. JOINTS: There is narrowing of the medial joint compartment. There is no articular erosion. There is mild marginal bony hypertrophy. The lateral and patellofemoral compartments are preserved. JOINT EFFUSION: None. OTHER FINDINGS: None. IMPRESSION: Medial osteoarthritis.
[2018-11-24 17:17] VITALS: BP 125/77; PULSE 92; TEMP 98.5; O2SAT 98
--- NOTE | 2018-11-24 17:20 | C.PDOC ---
History Of Present Illness The patient is a 63-year-old female who presents to the ED for evaluation after sustaining a fall prior to arrival. Patient admits to drinking earlier today. She states that she was walking while wearing shoes which were slightly bigger than her size when she accidentally fell and injured her left knee and left hand. Patient denies head injury, loss of consciousness, or neck pain at this time. - HPI Time Seen by Provider: 11/24/18 15:05 Chief Complaint (Nursing): Substance Abuse History Per: Patient History/Exam Limitations: no limitations Onset/Duration Of Symptoms: Hrs Location Of Injury: Left: Hand, Knee Additional History Per: Patient - Fall Fall:Prior To Injury: Tripped Past Medical History Reviewed: Historical Data, Nursing Documentation, Vital Signs Vital Signs: Last Vital Signs Temp 98.5 F 11/24/18 17:16 Pulse 92 H 11/24/18 17:16 Resp 20 11/24/18 17:16 BP 125/77 11/24/18 17:16 Pulse Ox 98 11/24/18 17:16 Primary Care Provider: FAMILY PROVIDER,NO - Medical History PMH: Anemia, Arthritis, Asthma, Bipolar Disorder, Depression, Diabetes (type II), Gastritis, GERD, Hepatitis (C), HTN, Hypercholesterolemia, Malignancy (Cervical/Ovarian CA), Osteoporosis Denies: HIV, Chronic Kidney Disease, Seizures, Sexually Transmitted Disease Surgical History: No Surg Hx - [facility] Procedures CERVICAL BIOPSY NEC (08/11/14) D & C NEC (08/11/14) LAPAROSCOPY (08/11/14) PACKED CELL TRANSFUSION (08/11/14) Family History: States: Diabetes, Hypertension - Social History Hx Tobacco Use: Yes Hx Alcohol Use: Yes (daily use of beer and rum) Hx Substance Use: Yes (cocaine) - Immunization History Hx Tetanus Toxoid Vaccination: No Hx Influenza Vaccination: No Hx Pneumococcal Vaccination: No Review Of Systems Musculoskeletal: Positive for: Other (left knee and left hand injury s/p fall ). Negative for: Neck Pain Neurological: Negative for: Other (head injury, LOC ) Physical Exam - Physical Exam Appears: Non-toxic, No Acute Distress Skin: Normal Color, Warm, Dry, No Ecchymosis Head: Atraumatic, Normacephalic Oral Mucosa: Moist Neck: Normal ROM, Supple Chest: Symmetrical, No Deformity, No Tenderness Cardiovascular: Rhythm Regular, No Murmur Respiratory: Normal Breath Sounds, No Rales, No Rhonchi, No Wheezing Extremity: Normal ROM (left upper and lower extremities ), No Tenderness (no bony point tenderness ), No Calf Tenderness, Capillary Refill (less than 2 seconds ), No Deformity, Swelling (mild, to left pre-patellar region), Other (superficial abrasion over the dorsum of left 5th MCP, normal range of motion of hand ) Pulses: Left Radial: Normal, Right Radial: Normal Neurological/Psych: Oriented x3, Normal Speech, Normal Cognition, Normal Motor, Normal Sensation ED Course And Treatment O2 Sat by Pulse Oximetry: 98 (on RA) Pulse Ox Interpretation: Normal Progress Note: Left knee XR ordered and reviewed. Tetanus IM administered and Bacitracin TOP applied. Disposition Counseled Patient/Family Regarding: Studies Performed, Diagnosis, Need For Followup - Disposition Referrals: [facility] [Outside] Disposition: HOME/ ROUTINE Disposition Time: 17:18 Condition: IMPROVED Additional Instructions: Take Advil or Tylenol for pain as needed. Keep the wound covered with antibiotic ointment and bandage. Instructions: Taking Care of Bruises, Skin Abrasions, Contusion (DC) Forms: Enish (American) - Clinical Impression Clinical Impression: Knee contusion, Hand abrasion - Scribe Statement The provider has reviewed the documentation as recorded by the Scribe (Angelina Khan) Provider Attestation: All medical record entries made by the Scribe were at my direction and personally dictated by me. I have reviewed the chart and agree that the record accurately reflects my personal performance of the history, physical exam, medical decision making, and the department course for this patient. I have also personally directed, reviewed, and agree with the discharge instructions and disposition.
== END 2018-11-24 17:28 | disposition home or self-care (01) ==
LOC: C.ER 14:28
DX: S60.512A Abrasion of left hand, initial encounter (principal); S80.02XA Contusion of left knee, initial encounter; W18.30XA Fall on same level, unspecified, initial encounter; Y93.01 Activity, walking, marching and hiking; Z23 Encounter for immunization; I10 Essential (primary) hypertension; E11.9 Type 2 diabetes mellitus without complications; E78.00 Pure hypercholesterolemia, unspecified; Z72.0 Tobacco use; Z85.43 Personal history of malignant neoplasm of ovary